=== PATIENT | male | born 1985 | race African-American/Black ===

== ENCOUNTER 2018-01-18 08:35 | Emergency (ER) | payer SELFPAY ==
[~2018-01-18] VITALS: Ht 190.5 cm; Wt 77.5 kg
[~2018-01-18 08:35] MED LIST: Z.0.NO CURRENT MEDS
[2018-01-18 08:38] VITALS: BP 123/60; PULSE 82; RESP 18; TEMP 98.7; O2SAT 98
[2018-01-18] MEDS ORDERED: ERYTOIN10 RIGHT EYE (09:25)
--- NOTE | 2018-01-18 09:26 | PD ---
HPI Chief Complaint: Foreign Body Time Seen by Provider: 08:45 Travel History International Travel<30 days: No Contact w/Intl Traveler<30days: No Traveled to known affect area: No History of Present Illness HPI 32-year-old male presents to the emergency department with a questionable foreign body in his right eye since yesterday. Says he thinks he got concrete dust in his eye yesterday while at work. Woke up this morning with some blurred vision, but denies change in vision or blurred vision at this time. Denies eye pain. Says it feels more like an irritation. Reports clear drainage. Has tried taking a shower and flushing his eye out with water and Visine. Aggravated with blinking and movement of his eye. Sensation of foreign body. No known relieving factors. Symptoms are mild in severity. No primary care provider. Allergies to sulfa. Denies significant past medical history. Has no other medical complaints. No other modifying factors or associated signs and symptoms. PFSH Past Medical History Medical History: Denies Significant Hx Tetanus Vaccination: Unknown Influenza Vaccination: No Past Surgical History Surgical History: No Previous Surgery Social History Alcohol Use: Yes (OCC) Tobacco Use: Yes (CIGARS) Substance Use: Yes (MARIJUANA) Allergies-Medications (Allergen,Severity, Reaction): Coded Allergies: Sulfa (Sulfonamide Antibiotics) (Unverified Allergy, Severe, Anaphylaxis, 01/18/18) Reported Meds & Prescriptions Reported Meds & Active Scripts Active Erythromycin Opth Oint 5 Mg/Gm Oint 1 Applic RIGHT EYE QID 7 Days Review of Systems Except as stated in HPI: all other systems reviewed are Neg Physical Exam Narrative GENERAL: Well-nourished, well-developed black male patient, in no acute distress SKIN: Warm and dry. HEAD: Atraumatic. Normocephalic. EYES: Pupils equal and round at 3 mm with brisk reaction. PERRLA. EOMI. right lid eversion with no foreign body noted. Right eye without scleral erythema and without lid edema. No orbital tenderness, erythema or cellulitis. Right eye without photophobia. No consensual photophobia. No scleral icterus. No drainage. Deluna lamp exam reveals a small corneal abrasion at the 6 o'clock position just below the iris; no foreign body noted with fluorescein exam. ENT: Mucosa pink and moist. Airway patent. NECK: Trachea midline. CARDIOVASCULAR: Regular rate. RESPIRATORY: No accessory muscle use. GASTROINTESTINAL: Flat. NEUROLOGICAL: Awake and alert. Oriented 3. No obvious cranial nerve deficits. Motor grossly within normal limits. Normal speech. PSYCHIATRIC: Appropriate mood and affect; insight and judgment normal. Data Data Last Documented VS Vital Signs Date Time Temp Pulse Resp B/P (MAP) Pulse Ox O2 Delivery O2 Flow Rate FiO2 01/18/18 09:10 17 01/18/18 08:38 98.7 82 123/60 (81) 98 Orders Orders Ed Discharge Order (01/18/18 09:26) Mandatory Outpatient Referral (01/18/18 09:26) [facility] Medical Decision Making Medical Screen Exam Complete: Yes Emergency Medical Condition: Yes Medical Record Reviewed: Yes Differential Diagnosis Corneal abrasion, foreign body, conjunctivitis Narrative Course 32-year-old male with right corneal abrasion. Erythromycin eye ointment prescribed for home. Mandatory referral ordered for ophthalmology for outpatient follow-up. Instructed patient to follow-up with boatswain's mate. Instructed patient to follow up with primary care provider. Patient verbalizes understanding and agreement with treatment plan. Patient is medically cleared and stable for discharge. Discussed reasons to return to the emergency department. Patient agrees with treatment plan. The patients vital signs are stable and the patient is stable for outpatient follow-up and treatment. Patient discharged home, stable and in no acute distress. Diagnosis Primary Impression: Corneal abrasion, right Qualified Codes: S05.01XA - Injury of conjunctiva and corneal abrasion without foreign body, right eye, initial encounter Referrals: Consolidation Accountant Primary Care Physician Patient Instructions: Corneal Abrasion (ED), General Instructions Additional Instructions: Ibuprofen or Tylenol as directed and as needed to reduce pain Do not patch the eye Do not rub the eye Refrigerated eye drops as needed to reduce pain Cool compresses to the eye as needed to reduce pain Follow-up with ophthalmology 1-2 days Primary care provider Return to the emergency department immediately with worsening of symptoms Med/Other Pt SpecificInfo: Prescription(s) given Scripts Erythromycin Opth Oint (Erythromycin Opth Oint) 5 Mg/Gm Oint 1 APPLIC RIGHT EYE QID for Infection for 7 Days, #1 TUBE 0 Refills Prov: Digna Ochoa 01/18/18 Disposition: 01 DISCHARGE HOME Condition: Stable Digna Ochoa January 18, 2018 09:26
== END 2018-01-18 09:41 | disposition home or self-care (01) ==
LOC: NEPD 08:35
DX: S05.01XA Injury of conjunctiva and corneal abrasion without foreign body, right eye, initial encounter (principal); X58.XXXA Exposure to other specified factors, initial encounter
CPT/HCPCS: 99283